=== PATIENT | female | born 1980 | race African-American/Black ===

== ENCOUNTER 2017-03-25 15:40 | Inpatient (IN) ==
[2017-03-25] MEDS ORDERED: MEPERIDINE 50 MG/1 ML VIAL IV PRN (15:52)
[2017-03-25] MEDS ORDERED: ONDANSETRON 4 MG/2 ML VIAL IV PRN (15:52)
[2017-03-25] MEDS ORDERED: DINOPROSTONE VAG GEL 10 MG SYRINGE VAG ONE (15:55)
[2017-03-25 16:16] LABS: Basophils % 0.3 % (0.0-0.8); Eosinophils # 0.1 10*3/uL (0.0-0.87); Eosinophils % 0.9 % (0.00-10.9); Hematocrit 36.4 VOL% (35.7-47.0); Hemoglobin 12.5 GM/DL (12.0-16.0); Immature Granulocytes % 0.8 %; Immature Granulocytes Absolute 0.09 #; Lymphocytes # 2.7 10*3/uL (1.4-4.0); Lymphocytes % 23.8 % (21.3-54.2); Mean Corpuscular HGB Conc 34.3 GM/DL (32-36); Mean Corpuscular Hemoglobin 28 PG (27-34); Mean Corpuscular Volume 82.7 FL (87-102); Mean Platelet Volume 13.6 FL (9.6-12.0); Monocytes # 0.8 10*3/uL (0.11-0.8); Monocytes % 6.9 % (1.7-12.7); Neutrophils # 7.8 10*3/uL (1.4-7.4); Neutrophils % 67.3 % (38.7-73.9); Platelet Count 209 T/CUMM (130-400); White Blood Count 11.5 T/CUMM (4-12)
[2017-03-25] MEDS: LACTATED RINGERS 1,000 ML IV SCH ×2 (16:25→20:38)
[2017-03-25 16:37] LABS: Bilirubin,Total 0.6 MG/DL (0.2-1.0); Calcium 9.5 MG/DL (8.5-10.1); Osmolality,Calculated 270.8 MOS/KG (273-304); Potassium 4.1 MMOL/L (3.5-5.1); Total Protein 7.5 G/DL (6.4-8.3); Uric Acid 6.7 MG/DL (2.6-6.0)
[2017-03-25] MEDS ORDERED: hydrALAZINE 20 MG/1 ML VIAL IV ONE ×2 (17:32→21:16)
[2017-03-25 18:33] LABS: HIV Antigen/Antibody Result Nonreactive (Nonreactive)
[2017-03-26] MEDS ORDERED: FAMOTIDINE 20 MG/2 ML VIAL IV ONE (00:25)
[2017-03-26] MEDS ORDERED: CITRIC ACID/SODIUM CITRATE 30 ML UDCUP PO ONE (00:25)
[2017-03-26] MEDS ORDERED: ePHEDrine 50 MG/ML AMP ONE (00:27)
[2017-03-26] MEDS ORDERED: fentaNYL 2 MCG/ROPIV 0.2% EPID 150 ML EPIDURAL SCH (00:30)
[2017-03-26] MEDS ORDERED: fentaNYL 2 MCG/ROPIV 0.2% EPID 150 ML EPIDURAL ONE (00:30)
[2017-03-26] MEDS: LACTATED RINGERS 1,000 ML IV SCH ×2 (01:03→02:17)
[2017-03-26 02:31] LABS: Apearance,Urine CLEAR (Clear); Bacteria,Urine Occasional /HPF (Few); Bilirubin,Urine Negative (Negative); Blood, Urine Negative (Negative); Glucose,Urine (UA) Negative (Negative); Ketones,Urine 5 mg/dL (Negative); Nitrite,Urine Negative (Negative); Protein,Urine Negative; RBC,Urine 1 /HPF (0-4); Squamous Epithelial Cell,Urine Occasional /HPF (0-10); Urine Color Yellow (Yellow); Urine Specific Gravity 1.009 (1.001-1.035); Urine Urobilinogen < 2.0 EU/DL (0.2-1.0); WBC,Urine 2 /HPF (0-6)
[2017-03-26] MEDS ORDERED: OXYTOCIN/LR 20 UNIT/1,000 ML BAG IV ONE ×3 (02:44→15:32)
[2017-03-26] MEDS ORDERED: OXYTOCIN/LR 20 UNIT/1,000 ML BAG IV SCH (03:00)
[2017-03-26] MEDS ORDERED: TERBUTALINE 1 MG/1 ML VIAL SUBCUT ONE ×2 (04:46→04:47)
[2017-03-26] MEDS ORDERED: OXYTOCIN 10 UNIT/ML VIAL IM ONE (07:47)
[2017-03-26] MEDS ORDERED: ceFAZolin 2,000 MG in PREMIX 1 EACH IV ONE (07:47)
[2017-03-26] MEDS ORDERED: OXYTOCIN/LR 30 UNIT/1,000 ML BAG IV ONE (07:47)
[2017-03-26] MEDS ORDERED: FLUTICASONE 50 MCG NASAL SPRAY 16 GM BOTTLE BOTH NARES SCH (09:00)
[2017-03-26] MEDS ORDERED: fentaNYL 100 MCG/2 ML VIAL ONE (10:06)
[2017-03-26] MEDS ORDERED: LIDOCAINE MPF 2% /EPI 20 ML VIAL ONE (10:07)
[2017-03-26 10:28] LABS: Cord Venous Blood HCO3 23.6 MMOL/L; Cord Venous Blood PCO2 82.5 MMHG; Cord Venous Blood PO2 19.2 MMHG
[2017-03-26] MEDS ORDERED: LACTATED RINGERS 1,000 ML IV SCH (15:32)
[2017-03-26] MEDS ORDERED: ONDANSETRON 4 MG/2 ML VIAL IV PRN (15:32)
[2017-03-26] MEDS ORDERED: MAGNESIUM HYDROXIDE SUSP 30 ML UDCUP PO PRN (15:32)
[2017-03-26] MEDS ORDERED: ACETAMINOPHEN 325 MG TABLET PO PRN (15:32)
[2017-03-26] MEDS ORDERED: SIMETHICONE CHEW 80 MG TABLET PO PRN (15:32)
[2017-03-26] MEDS ORDERED: RHO(D) IMMUNE GLOBULIN 300 MCG SYRINGE IM ONE (15:32)
[2017-03-26] MEDS: ceFAZolin 1,000 MG in SYRINGE 1 EACH IV SCH (16:54)
[2017-03-26] MEDS: IBUPROFEN 800 MG TABLET PO PRN (16:55)
[2017-03-26 17:38] LABS: Basophils % 0.2 % (0.0-0.8); Eosinophils % 0.2 % (0.00-10.9); Hematocrit 35.5 VOL% (35.7-47.0); Immature Granulocytes % 0.5 %; Immature Granulocytes Absolute 0.06 #; Lymphocytes # 2.6 10*3/uL (1.4-4.0); Lymphocytes % 21.1 % (21.3-54.2); Mean Corpuscular HGB Conc 33.8 GM/DL (32-36); Mean Corpuscular Hemoglobin 28 PG (27-34); Mean Corpuscular Volume 83.7 FL (87-102); Mean Platelet Volume 13.8 FL (9.6-12.0); Monocytes # 1.1 10*3/uL (0.11-0.8); Monocytes % 8.9 % (1.7-12.7); Neutrophils # 8.4 10*3/uL (1.4-7.4); Neutrophils % 69.1 % (38.7-73.9); Platelet Count 180 T/CUMM (130-400); Red Blood Count 4.24 MC/CUMM (3.8-5.5); White Blood Count 12.1 T/CUMM (4-12)
[2017-03-26] MEDS: DOCUSATE SODIUM 100 MG CAPSULE PO SCH (21:17)
[2017-03-27] MEDS: ceFAZolin 1,000 MG in SYRINGE 1 EACH IV SCH (00:36)
[2017-03-27 06:07] LABS: Basophils % 0.3 % (0.0-0.8); Eosinophils # 0.1 10*3/uL (0.0-0.87); Eosinophils % 0.6 % (0.00-10.9); Hematocrit 31.8 VOL% (35.7-47.0); Hemoglobin 11.1 GM/DL (12.0-16.0); Immature Granulocytes % 0.4 %; Immature Granulocytes Absolute 0.05 #; Lymphocytes # 2.7 10*3/uL (1.4-4.0); Lymphocytes % 24.1 % (21.3-54.2); Mean Corpuscular HGB Conc 34.9 GM/DL (32-36); Mean Corpuscular Hemoglobin 28 PG (27-34); Mean Corpuscular Volume 81.1 FL (87-102); Mean Platelet Volume 13.4 FL (9.6-12.0); Monocytes # 1.1 10*3/uL (0.11-0.8); Neutrophils # 7.2 10*3/uL (1.4-7.4); Neutrophils % 64.6 % (38.7-73.9); Platelet Count 162 T/CUMM (130-400); Red Blood Count 3.92 MC/CUMM (3.8-5.5); White Blood Count 11.2 T/CUMM (4-12)
[2017-03-27] MEDS: IBUPROFEN 800 MG TABLET PO PRN (06:56)
[2017-03-27] MEDS: MULTIVITAMIN (PRENATAL) TABLET PO SCH (10:13)
[2017-03-27] MEDS: DOCUSATE SODIUM 100 MG CAPSULE PO SCH ×2 (10:13→20:01)
[2017-03-27] MEDS ORDERED: MEPERIDINE 50 MG/1 ML VIAL IV PRN (20:51)
[2017-03-27] MEDS ORDERED: FUROSEMIDE 40 MG/4 ML VIAL IV SCH (22:00)
[2017-03-27] MEDS: FUROSEMIDE 40 MG TABLET PO SCH (22:43)
[2017-03-28] MEDS ORDERED: METOCLOPRAMIDE 10 MG TABLET PO SCH
[2017-03-28] MEDS: METOCLOPRAMIDE 10 MG TABLET PO SCH ×3 (00:20→16:56)
[2017-03-28] MEDS: FUROSEMIDE 40 MG TABLET PO SCH ×3 (03:59→16:30)
[2017-03-28] MEDS ORDERED: MAGNESIUM CITRATE 300 ML BOTTLE PO ONE (09:00)
[2017-03-28] MEDS: MULTIVITAMIN (PRENATAL) TABLET PO SCH (10:19)
[2017-03-28] MEDS: DOCUSATE SODIUM 100 MG CAPSULE PO SCH (10:20)
[2017-03-28 11:44] VITALS: BP 144/90
[2017-03-28] MEDS ORDERED: DIPH/TET/ACEL PERT BOOSTER VACCINE 0.5 ML VIAL IM ONE (15:03)
== END 2017-03-28 16:50 | disposition home or self-care (01) | DRG 540 ==
LOC: N.LDOUT 15:40 → N.LD 15:42 → N.OB 03-26 15:31
PROVIDERS: ADMIT Obstetrics & Gynecology; ATTEND Obstetrics & Gynecology
PROC: LDCSECT (ICD-10-PCS; 2017-03-26 07:30)